=== PATIENT | female | born 1985 | race Caucasian/White ===

== ENCOUNTER 2020-12-23 04:38 | Emergency (ER) | payer OTHER ==
[~2020-12-23] VITALS: Ht 162.6 cm; Wt 108.2 kg
[~2020-12-23 04:38] MED LIST: AMOX500C2 PO
[2020-12-23 04:41] VITALS: BP 111/68
[2020-12-23 05:25] LABS: COVID AG,FIA SOURCE NASOPHARYNGEAL
== END 2020-12-23 07:09 | disposition home or self-care (01) ==
LOC: EMS 04:40
DX: R10.13 Epigastric pain (principal); R50.9 Fever, unspecified; R14.0 Abdominal distension (gaseous); Z20.822 Contact with and (suspected) exposure to COVID-19
CPT/HCPCS: 99283

== ENCOUNTER 2020-12-27 10:40 | Emergency (ER) | payer OTHER ==
[~2020-12-27] VITALS: Ht 162.6 cm; Wt 120.0 kg
[2020-12-27 10:45] VITALS: BP 112/68
== END 2020-12-27 12:39 | disposition left against medical advice (07) ==
LOC: EMS 10:42
DX: R51.9 Headache, unspecified (principal); Z53.21 Procedure and treatment not carried out due to patient leaving prior to being seen by health care provider

== ENCOUNTER 2021-01-09 12:23 | Emergency (ER) | payer OTHER ==
[~2021-01-09] VITALS: Ht 165.1 cm; Wt 102.3 kg
[2021-01-09 13:44] LABS: COVID AG,FIA SOURCE NASAL SWAB
[2021-01-09 14:06] VITALS: BP 132/53
== END 2021-01-09 15:29 | disposition home or self-care (01) ==
LOC: EMS 12:26
DX: Z20.822 Contact with and (suspected) exposure to COVID-19 (principal)
CPT/HCPCS: 99283

== ENCOUNTER 2021-01-09 23:06 | Emergency (ER) | payer OTHER ==
[~2021-01-09] VITALS: Ht 162.6 cm; Wt 102.3 kg
[2021-01-09 23:56] LABS: APPEARANCE,URINE CLEAR (CLEAR); GLUCOSE, URINE (UA) NEGATIVE (NEGATIVE); KETONES,URINE TRACE mg/dL (NEGATIVE); LEUKOCYTE ESTERASE ,URINE SMALL (NEGATIVE); NITRATE,URINE POSITIVE (NEGATIVE); OCCULT BLOOD,URINE NEGATIVE (NEGATIVE); PH,URINE 5.5 (5.0-8.0); PROTEIN,URINE TRACE (NEGATIVE)
[2021-01-09 23:57] LABS: BILIRUBIN,URINE PRELIM. POSITIVE (NEGATIVE)
[2021-01-10 00:05] LABS: BACTERIA,URINE Moderate /HPF (None Seen); RBC,URINE 0-2 /HPF (0-2); SQUAMOUS EPITHELIAL CELL,UR Moderate /LPF (None Seen); WBC,URINE 51-100 /HPF (0-5)
[2021-01-10 00:13] LABS: HEMOGLOBIN 11.4 g/dL (12.0-16.0); MONOCYTES % (AUTO) 10.4 % (2.0-9.0)
[2021-01-10 00:17] LABS: BASOPHILS % (AUTO) 0.2 % (0.0-2.0); EOSINOPHILS % (AUTO) 0.3 % (1.0-6.0); HEMATOCRIT 33.7 % (36-46); LYMPHOCYTES # (AUTO) 2.5 K/uL (1.0-4.8); LYMPHOCYTES % (AUTO) 27.2 % (22.0-44.0); MEAN CORPUSCULAR HEMOGLOBIN 30.3 pg (26.0-34.0); MEAN CORPUSCULAR HGB CONC 33.9 G/dL (31.0-37.0); MEAN CORPUSCULAR VOLUME 90 fL (80-100); NEUTROPHILS # (AUTO) 5.7 K/uL (1.8-7.7); NEUTROPHILS % (AUTO) 61.9 % (40.0-70.0); PLATELET COUNT (AUTO) 514 K/uL (150-450); RED BLOOD CELL COUNT(AUTO) 3.77 MIL/uL (4.00-5.20); RED CELL DISTRIBUTION WIDTH 14.1 % (11.5-14.5)
[2021-01-10 00:21] LABS: ANION GAP 8 mmol/L (8-16); CALCIUM, TOTAL 8.3 mg/dL (8.8-10.5); CARBON DIOXIDE 26 mmol/L (22-29); CHLORIDE 108 mmol/L (98-107); CREATININE 0.74 mg/dL (0.60-1.30); GLOMERULAR FILTR. RATE CALC > 60 mL/min (>60); GLUCOSE,RANDOM 117 mg/dL (70-110); POTASSIUM 3.9 mmol/L (3.5-5.1); SODIUM SERUM 142 mmol/L (136-145); UREA NITROGEN, BLOOD 8 mg/dL (7-18)
[2021-01-10 00:38] LABS: ALANINE AMINOTRANSFERASE 38 U/L (12-78); ALKALINE PHOSPHATASE 64 U/L (46-116); ASPARTATE AMINOTRANSFERASE 17 U/L (15-37); BILIRUBIN,TOTAL 0.2 mg/dL (0.1-1.0)
[2021-01-10 00:39] LABS: ALBUMIN 2.2 g/dL (3.4-5.0); TOTAL PROTEIN, SERUM 6.4 g/dL (6.4-8.2)
[2021-01-10 00:51] LABS: HCG,QUANTITATIVE 14912 mIU/mL (0-6)
[2021-01-10 00:58] VITALS: BP 115/68
[2021-01-10] MEDS ORDERED: NITROFURANTOIN/NITROFURAN MAC 100 MG CAPSULE [MACROBID] PO ONE (01:00)
[2021-01-10] MEDS ORDERED: PB/HYOSCY/ATR/SCOP/LIDO/MAALOX 55 ML BOTTLE PO ONE (01:00)
== END 2021-01-10 01:24 | disposition home or self-care (01) ==
LOC: EMS 23:08
DX: O23.42 Unspecified infection of urinary tract in pregnancy, second trimester (principal); O26.892 Other specified pregnancy related conditions, second trimester; R10.31 Right lower quadrant pain; Z3A.24 24 weeks gestation of pregnancy
CPT/HCPCS: 76805; 80053; 81001; 84702; 85025; 86901; 87077; 87086; 87186; 99284

== ENCOUNTER 2021-01-18 09:42 | Emergency (ER) | payer OTHER ==
[~2021-01-18] VITALS: Ht 162.6 cm; Wt 102.0 kg
[2021-01-18 11:25] LABS: COVID AG,FIA SOURCE NASAL SWAB
[2021-01-18 11:38] LABS: RAPID GROUP A STREP NEGATIVE (NEGATIVE)
[2021-01-18 11:45] LABS: INFLUENZA TYPE A NEGATIVE FOR TYPE A (NEGATIVE); INFLUENZA TYPE B NEGATIVE FOR TYPE B (NEGATIVE)
[2021-01-18 13:02] VITALS: BP 121/75
== END 2021-01-18 14:09 | disposition home or self-care (01) ==
LOC: EMS 09:42
DX: O99.512 Diseases of the respiratory system complicating pregnancy, second trimester (principal); J02.9 Acute pharyngitis, unspecified; B00.9 Herpesviral infection, unspecified; Z20.822 Contact with and (suspected) exposure to COVID-19; Z3A.27 27 weeks gestation of pregnancy
CPT/HCPCS: 76805; 84702; 87426; 87430; 87804; 99284; U0003

== ENCOUNTER 2021-01-22 09:52 | Emergency (ER) | payer OTHER ==
[~2021-01-22] VITALS: Ht 162.6 cm; Wt 102.3 kg
[2021-01-22 10:05] VITALS: BP 118/68
== END 2021-01-22 12:40 | disposition left against medical advice (07) ==
LOC: EMS 10:01
DX: M79.644 Pain in right finger(s) (principal); Z53.21 Procedure and treatment not carried out due to patient leaving prior to being seen by health care provider

== ENCOUNTER 2021-01-22 13:00 | Emergency (ER) | payer OTHER ==
[~2021-01-22] VITALS: Ht 162.6 cm; Wt 86.4 kg
[2021-01-22 13:12] VITALS: BP 148/81
== END 2021-01-22 14:25 | disposition home or self-care (01) ==
LOC: EMS 13:05
DX: O09.523 Supervision of elderly multigravida, third trimester (principal); L03.113 Cellulitis of right upper limb; Z3A.28 28 weeks gestation of pregnancy
CPT/HCPCS: 99283; Z7502

== ENCOUNTER 2021-05-07 08:45 | Emergency (ER) | payer OTHER ==
[~2021-05-07] VITALS: Ht 162.6 cm; Wt 100.0 kg
[2021-05-07 08:49] VITALS: BP 159/106
[2021-05-07 09:26] LABS: COVID AG,FIA SOURCE NASOPHARYNGEAL
== END 2021-05-07 10:33 | disposition home or self-care (01) ==
LOC: EMS 08:49
DX: Z20.822 Contact with and (suspected) exposure to COVID-19 (principal); Z79.899 Other long term (current) drug therapy
CPT/HCPCS: 99283

== ENCOUNTER 2021-08-04 08:44 | Emergency (ER) | payer OTHER ==
[~2021-08-04] VITALS: Ht 162.6 cm; Wt 104.5 kg
[2021-08-04 10:57] LABS: BASOPHILS % (AUTO) 0.8 % (0.0-2.0); EOSINOPHILS % (AUTO) 1.5 % (1.0-6.0); HEMOGLOBIN 11.6 g/dL (12.0-16.0); LYMPHOCYTES # (AUTO) 1.6 K/uL (1.0-4.8); LYMPHOCYTES % (AUTO) 23.2 % (22.0-44.0); MEAN CORPUSCULAR HEMOGLOBIN 29.1 pg (26.0-34.0); MEAN CORPUSCULAR HGB CONC 34.1 G/dL (31.0-37.0); MEAN CORPUSCULAR VOLUME 85 fL (80-100); MONOCYTES # (AUTO) 0.5 K/uL (0.1-1.0); MONOCYTES % (AUTO) 6.9 % (2.0-9.0); NEUTROPHILS # (AUTO) 4.7 K/uL (1.8-7.7); NEUTROPHILS % (AUTO) 67.6 % (40.0-70.0); PLATELET COUNT (AUTO) 523 K/uL (150-450); RED BLOOD CELL COUNT(AUTO) 3.99 MIL/uL (4.00-5.20); RED CELL DISTRIBUTION WIDTH 14.8 % (11.5-14.5)
[2021-08-04 11:09] LABS: ANION GAP 9 mmol/L (8-16); CALCIUM, TOTAL 8.3 mg/dL (8.8-10.5); CARBON DIOXIDE 28 mmol/L (22-29); CHLORIDE 103 mmol/L (98-107); CREATININE 0.73 mg/dL (0.60-1.30); GLOMERULAR FILTR. RATE CALC > 60 mL/min (>60); GLUCOSE,RANDOM 85 mg/dL (70-110); SODIUM SERUM 140 mmol/L (136-145); UREA NITROGEN, BLOOD 10 mg/dL (7-18)
[2021-08-04 11:14] LABS: ALANINE AMINOTRANSFERASE 40 U/L (12-78); ALBUMIN 2.3 g/dL (3.4-5.0); ALKALINE PHOSPHATASE 82 U/L (46-116); ASPARTATE AMINOTRANSFERASE 26 U/L (15-37); BILIRUBIN,TOTAL 0.1 mg/dL (0.1-1.0); INR 0.9 (0.9-1.1); TOTAL PROTEIN, SERUM 6.8 g/dL (6.4-8.2)
[2021-08-04 11:17] LABS: LACTIC ACID 1.6 mmol/L (0.4-2.0)
[2021-08-04] MEDS ORDERED: CeFAZolin 2 GM/DEXTROSE 50 ML IV ONE (12:15)
[2021-08-04] MEDS ORDERED: MORPHINE SULFATE 4 MG/ML SYRINGE IVP ONE (12:30)
[2021-08-04 12:51] LABS: COVID AG,FIA SOURCE NASAL SWAB
[2021-08-04 18:04] VITALS: BP 136/72
== END 2021-08-04 18:33 | disposition left against medical advice (07) ==
LOC: EMS 08:44 → EDUNIT# 08:44 → 5S 18:17 → UNDOADMIN 18:17 → EMS 18:33
DX: L03.116 Cellulitis of left lower limb (principal); Z20.822 Contact with and (suspected) exposure to COVID-19
CPT/HCPCS: 36415; 80053; 83605; 85025; 85610; 85730; 87040; 87426; 93005; 93971; 96365; 96375; 99285; J0690; J2270; G0378